=== PATIENT | male | born 1970 | race African-American/Black ===

== ENCOUNTER 2017-01-20 11:05 | Emergency (ER) | payer MEDICAID ==
[~2017-01-20] VITALS: Ht 188 cm; Wt 98.0 kg
--- NOTE | 2017-01-20 11:07 | NUR ---
PT BIBRA TO ER BED 12. C/O SEVERE NECK PAIN S/P C SPINE SURGERY 4 DAYS AGO. ALSO C/O PAIN AND NUMBNESS TO LUE. PT PLACED ON MONITOR. 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 AWAITING MD PRADHAN.
--- NOTE | 2017-01-20 11:32 | NUR ---
DR ANDERSON AT BEDSIDE FOR EVAL.
--- NOTE | 2017-01-20 11:48 | NUR ---
IV LINE STARTED BLOOD DRAWN AND SENT TO LAB.
--- NOTE | 2017-01-20 11:50 | NUR ---
PT REMOVING B/P CUFF AND PULSE SENSOR. MADE AWARE OF THE NEED TO MONITOR DUE TO HYPOTENSION. REFUSING TO BE PUT BACK IN SINCE ITS HURTING HIM A LOT.
[2017-01-20] MEDS ORDERED: IV NS 0.9% 3,000 ML ONE (11:51)
[2017-01-20] MEDS ORDERED: IV SET PRIMARY 1 EA INFUS.SET MC ONE (11:51)
[2017-01-20 11:59] LABS: BASOPHILS % (AUTO) 0.2 % (0.0-2.0); EOSINOPHILS # (AUTO) 0.3 /CMM (0.0-0.7); EOSINOPHILS % (AUTO) 2.3 % (0.0-6.0); HEMATOCRIT 36 % (39-51); HEMOGLOBIN 12.3 g/dL (13.5-17.5); LYMPHOCYTES % (AUTO) 16.9 % (20.0-44.0); MEAN CORPUSCULAR HEMOGLOBIN 31 PG (26.0-33.0); MEAN CORPUSCULAR HGB CONC 34 g/dl (31.0-36.0); MEAN CORPUSCULAR VOLUME 91 fL (80-96); MONOCYTES # (AUTO) 1.1 /CMM (0.1-1.30); MONOCYTES % (AUTO) 9.2 % (2.0-12.0); NEUTROPHILS # (AUTO) 8.5 /CMM (1.8-8.9); NEUTROPHILS % (AUTO) 71.4 % (43.0-81.0); PLATELET COUNT (AUTO) 268 /CMM (150-450); RDW COEFFICIENT OF VARIATION 13.7 (11.5-15.0); RED BLOOD CELL COUNT(AUTO) 3.98 MIL/uL (4.5-6.0)
[2017-01-20] MEDS ORDERED: IV NS 0.9% 1,000 ML BAG IV ONE (12:00)
[2017-01-20 12:22] LABS: TROPONIN I < 0.017 ng/mL (0.00-0.056)
[2017-01-20 12:23] LABS: INR 1.11 (0.87-1.13)
[2017-01-20 12:25] LABS: ALANINE AMINOTRANSFERASE 59 U/L (12-78); ALBUMIN 3.2 g/dL (3.4-5.0); ALKALINE PHOSPHATASE 65 U/L (46-116); ASPARTATE AMINOTRANSFERASE 50 U/L (15-37); BILIRUBIN,DIRECT 0.1 mg/dL (0.0-0.2); BILIRUBIN,TOTAL 0.6 mg/dL (0.2-1.0); CALCIUM, SERUM 8.1 mg/dL (8.5-10.1); CHLORIDE 101 mmol/L (98-107); CREATININE 2.4 mg/dL (0.6-1.3); GLUCOSE 103 mg/dL (74-106); POTASSIUM 4.5 mmol/L (3.5-5.1); SODIUM SERUM 136 mmol/L (136-145); UREA NITROGEN, BLOOD 46 mg/dL (7-18)
--- NOTE | 2017-01-20 12:30 | NUR ---
UNABLE TO PROVIDE URINE SAMPLE. URINAL PROVIDED.
[2017-01-20 12:31] LABS: CARBON DIOXIDE 27 mmol/L (21-32)
--- NOTE | 2017-01-20 12:58 | NUR ---
CALLED NURSING SUP. FOR TELE BED
[2017-01-20] MEDS ORDERED: MIRT15TA PO (13:02)
[2017-01-20] MEDS ORDERED: METO50TA3 PO (13:02)
[2017-01-20] MEDS ORDERED: GABA-534 PO (13:02)
--- NOTE | 2017-01-20 13:10 | NUR ---
PT TO RADIOLOGY FOR C SPINE CT VIA [facility].
--- NOTE | 2017-01-20 14:08 | NUR ---
EPIC PAGED, DR.SIMONA Dash DISTRIBUTION TECH
--- NOTE | 2017-01-20 14:15 | NUR ---
[facility] CALLED, REWIND OPERATOR
[2017-01-20] MEDS ORDERED: PIPERACILLIN /TAZOBACTAM 3.375 G in IV D5W 50 ML IV ONE (14:30)
[2017-01-20] MEDS ORDERED: VANCOMYCIN 1 GM in IV D5W 250 ML IV ONE (14:30)
[2017-01-20] MEDS ORDERED: IV SET PRIMARY PUMP SET 1 EA INFUS.SET MC ONE (14:34)
--- NOTE | 2017-01-20 15:01 | NUR ---
CALLED [facility], SPOKE WITH MAURICIO IN BED BOARD [phone], PRESENTED PT FOR TRANSFER HLOC, HE TOLD ME TO FAX HIM PT RESULTS TO [phone].
[2017-01-20 15:21] LABS: APPEARANCE,URINE CLEAR (CLEAR); BILIRUBIN,URINE NEGATIVE (NEGATIVE); BLOOD, URINE NEGATIVE Ery/uL (NEGATIVE); COLOR,URINE YELLOW (YELLOW); KETONES,URINE NEGATIVE (NEGATIVE); LEUKOCYTE ESTERASE ,URINE NEGATIVE (NEGATIVE); NITRITE, URINE NEGATIVE (NEGATIVE); PROTEIN,URINE NEGATIVE (NEGATIVE); UGLUCOSE NEGATIVE (NEGATIVE)
[2017-01-20 15:28] LABS: BACTERIA,URINE Rare /HPF (None Seen); RBC,URINE NONE SEEN /HPF (0-2); SQUAMOUS EPITHELIAL CELL,UR Rare /HPF (None Seen); WBC,URINE 0-2 /HPF (0-3)
--- NOTE | 2017-01-20 16:04 | NUR ---
CALLED MAURICIO AT [facility] TO FOLLOW UP WITH PT TRANSFER, HE GAVE ME A NUMBER FOR A [phone] AND SAID OUR ER DOCTOR WILL HAVE TO TALK TO REGARDING ADMISSION OF THE PT AT THEIR HOSPITAL, PAGED AT [phone]
--- NOTE | 2017-01-20 16:11 | NUR ---
SLEEPING IN BED. ON MONITOR W/ STABLE VITALS. WILL CONTINUE TO MONITOR.
--- NOTE | 2017-01-20 16:11 | NUR ---
PT SLEEPING IN BED. ON MONITOR W/ STABLE VITALS. NAD NOTED. WILL CONTINUE TO MONITOR.
--- NOTE | 2017-01-20 16:37 | NUR ---
REPAGED AT [phone]
--- NOTE | 2017-01-20 17:20 | NUR ---
HAVE NOT RECEIVED CALL BACK FROM , [facility] PAGED, [employer], TO ADMIT PT HERE
--- NOTE | 2017-01-20 17:46 | NUR ---
CALLED DR.WILLIAM HANLEY AT [phone], TRANSFERRED CALL TO
--- NOTE | 2017-01-20 18:41 | NUR ---
CALLED DR.WILLIAM HANLEY AT [phone], TRANSFERRED CALL TO
--- NOTE | 2017-01-20 19:00 | NUR ---
SLEEPING. EASILY AROUSABLE. ON MONITOR. STABLE VITALS.
--- NOTE | 2017-01-20 21:15 | NUR ---
SLEEPING. EASILY AROUSABLE. ON MONITOR W/ STABLE VITALS. WILL CONT. TO MONITOR.
--- NOTE | 2017-01-20 23:15 | NUR ---
REPORT TO CHARGE NURSE MICHELLE FOR [facility].
--- NOTE | 2017-01-21 00:28 | NUR ---
RESTING WITH NO S/S OF DISTRESS. RESP EVEN AND UNLABORED. STILL ON MONITOR.
--- NOTE | 2017-01-21 01:40 | NUR ---
REMAINS RESTING WITH NO S/S OF DISTRESS NOTED. RESP EVEN AND UNLABORED.
--- NOTE | 2017-01-21 02:49 | NUR ---
NO NEW CHANGES FROM PREVIOUS ASSESSMENT. RESP EVEN AND UNLABORED
--- NOTE | 2017-01-21 03:26 | NUR ---
NAD NI=OTED. RESP EVEN AND UNLABORED. STILL MONITORED.
--- NOTE | 2017-01-21 04:27 | NUR ---
STILL MONITORED. AROUSABLE. DENIES ANY SX'S AT THIS TIME.
--- NOTE | 2017-01-21 05:10 | NUR ---
PLAN OF CARE UPDATED. 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
--- NOTE | 2017-01-21 07:01 | NUR ---
REPORT GIVEN TO AM SHIFT.
[2017-01-21] MEDS ORDERED: HYDROCODONE/APAP 5/325MG 1 EACH TABLET ONE (07:56)
[2017-01-21] MEDS ORDERED: HYDROCODONE/APAP 5/325MG 1 EACH TABLET PO ONE (08:00)
--- NOTE | 2017-01-21 10:06 | NUR ---
Social service consult requested by MARKELL Esteban for discharge planning since pt. is homeless. TOYIN met with pt. bedside. Pt. is alert and oriented x4. Pt. appears upset and angry regarding being discharged. TOYIN informed pt. that he is medically cleared by the doctor for discharge and SW is here to assist for group home resources or placement. Pt. began raising his voice at and stating that no doctor has spoken to him regarding why he fainted. TOYIN contacted MARKELL Esteban who came to see pt. bedside and speak with him. TOYIN to follow up with pt. and MARKELL Esteban within the next hour.
--- NOTE | 2017-01-21 10:28 | NUR ---
Pt resting comfortably, no acute s/s of distress noted at this time. Carlito Dobbins [employer] M[employer]DER at bedside to reevaluate pt
--- NOTE | 2017-01-21 10:29 | NUR ---
[facility] hosp[facility] social worker at bedside to speak with patient and offer community resources. Pt refusing community resources and homeless senior living placement
--- NOTE | 2017-01-21 10:30 | NUR ---
SW met with pt. again to discuss discharge planning and offer resources. Pt. continued to be verbally abusive towards SW and declined homeless resources that were being offered. SW offered pt. bus tokens, which he accepted. Pt. was given two bus tokens.
--- NOTE | 2017-01-21 11:20 | NUR ---
PT. VERBALIZED UNDERSTANDING OF AFTERCARE INSTRUCTIONS.Patient discharged to street in stable condition. Written and verbal after care instructions given. Patient verbalizes understanding of instruction.
[2017-01-21 11:22] VITALS: BP 134/71
== END 2017-01-21 11:23 | disposition home or self-care (01) ==
LOC: ER 11:10 → UNDOADMIN 20:40 → TRANSITION 20:40
DX: E86.0 Dehydration (principal); I10 Essential (primary) hypertension; G89.18 Other acute postprocedural pain
CPT/HCPCS: 36415; 70490-TC; 71010-TC; 80048-TC; 80076-TC; 81000-TC; 83605-TC; 84484-TC; 85025-TC; 85730-TC; 86850-TC; 87040-TC; 87081-TC; 87086-TC; A4606; G0378; G0480; J2543; J3370; J7030; J7060; Z7610